=== PATIENT | male | born 1955 | race Caucasian/White ===

== ENCOUNTER 2019-04-11 22:01 | Emergency (ER) | payer BC ==
[~2019-04-11] VITALS: Ht 315 cm; Wt 77.6 kg
[~2019-04-11 22:01] MED LIST: ASPIR 8181 MG PO; ATORVASTATIN CA20 MG PO; BENAZEPRIL HCL10 MG PO; COSAMIN ASU CA1 EACH PO; METOPROLOL TART25 MG PO; PANTOPRAZOLE SO40 MG PO
--- OUTSIDE RECORDS SUMMARY | 2019-04-11 22:04 | XMS REPORT | Continuity of Care Document ---
Author Author [employer] Organization [employer] Address Unknown Phone Unavailable Care Team Providers Care Hand Cloth Folder Name Role Phone [facility] [employer] Unavailable Unavailable Problems Problem Status Onset Date Classification Date Reported Comments Source CERVICAL Active 09/04/2017 [facility] Discharge Diagnosis: Palpitations 12/23/2015 12/26/2015 [facility] HIGH PULSE Active 12/23/2015 [facility] 719.46 - JOINT PAIN-L/LE Active 05/19/2014 [facility] [place] RT KNEE SPRAIN Active 02/13/2014 [facility] RT KNEE Active 10/08/2000 [facility] Pulmonary embolism Resolved Problem 10/14/2017 [facility] Datatype(DG1.4)- Active [facility] RT KNEE PAIN Active [facility] JOINT PAIN-L/LEG Active [facility] Medications Medication Details Route Status Patient Instructions Ordering Provider Order Date Source Iohexol 87 mL, Route: IVP, Drug Form: SOLN, Dosing Weight 74.091, kg, ONCALL, STAT, Start date: 12/23/15 14:07:00, Duration: 1 doses or times, Dose=2.2ml/kg, Max uecs=[id number] -- "To be infused by Radiology Staff ONLY" Inactive 12/23/2015 [facility] Sodium Chloride 0.154 MEQ/ML Injectable Solution 1,000 mL, 1,000 ml/hr, Infuse Over: 1 hr, Route: IV, ONCE, Priority: STAT, Dosing Weight 74.091 kg, Start date: 12/23/15 12:33:00, Duration: 1 doses or times, Stop date: 12/23/15 12:33:00 Inactive 12/23/2015 [facility] Zofran 4 mg, Route: IVP, Drug form: INJ, ONCE, Dosing Weight 74.091, kg, Priority: STAT, Start date: 12/23/15 12:33:00, Stop date: 12/23/15 12:33:00 Inactive 12/23/2015 [facility] Morphine 2 mg, Route: IVP, Drug form: INJ, ONCE, Dosing Weight 74.091, kg, Priority: STAT, Start date: 12/23/15 12:33:00, Stop date: 12/23/15 12:33:00 Inactive 12/23/2015 [facility] enoxaparin 80 mg/0.8 mL subcutaneous solution 70 mg=0.7 mL, SUB-Q, [id number], # 60 syr, 0 Refill(s) Active 04/07/2014 [facility] Vitamin D3 2000 intl units oral capsule 2,000 IntlUnit=1 cap, PO, Daily, 0 Refill(s) Active 04/06/2014 [facility] Vitamin B12 SL, Daily, 0 Refill(s) Active 04/06/2014 [facility] Coumadin 5 mg, 1 tab, Route: PO, Drug form: TAB, Q5PM, kg, Start date: 04/06/14 17:00:00, Duration: 1 doses or times, Stop date: 04/06/14 17:00:00Notes: Nurse to ensure documentation of patient education per anticoagulation policy. Avoid large intake of vitamin-K containing foods diet. (Same As: Coumadin) Inactive 04/06/2014 [facility] Lovenox 70 mg, 0.7 mL, Route: SUB-Q, Drug form: INJ, [id number], kg, Start date: 04/06/14 14:00:00, Duration: 30 day, Stop date: 05/06/14 6:00:00Notes: Nurse to ensure documentation of patient education per an ticoagulation policy. (Same as: Lovenox) No Longer Active 04/06/2014 [facility] benazepril 20 mg, 1 tab, Route: PO, Drug form: TAB, Daily, Dosing Weight 74.29, kg, Start date: 04/06/14 10:00:00, Duration: 30 day, Stop date: 05/06/14 9:00:00Notes: Non-Formulary Drug (Same As: Lotensin) No Longer Active 04/06/2014 [facility] Docusate 100 mg, 1 cap, Route: PO, Drug form: CAP, BID, kg, Start date: 04/06/14 9:00:00, Duration: 30 day, Stop date: 05/05/14 17:00:00Notes: (Same as: Colace) (Do Not Crush) No Longer Active 04/06/2014 [facility] Protonix 40 mg, 1 tab, Route: PO, Drug form: ECTAB, Before Breakfast, kg, Start date: 04/06/14 7:30:00, Duration: 30 day, Stop date: 05/05/14 7:30:00Notes: Tablet should not be chewed or crushed. (Same as: Pr otonix) No Longer Active 04/06/2014 [facility] Morphine 2 mg, 1 mL, Route: IVP, Drug form: INJ, Q4H, kg, PRN as needed for pain, Start date: 04/06/14 6:30:00, Duration: 30 day, Stop date: 05/06/14 6:29:00Notes: (Same as:MORPhine Sulfate) No Longer Active 04/06/2014 [facility] benazepril 20 mg, PO, Daily, 0 Refill(s) Active 04/06/2014 [facility] pantoprazole 40 MG Granules [Protonix] =1 Pack, PO, Daily, # 30 ea, 0 Refill(s) Active 04/06/2014 [facility] Tramadol 50 mg, 1 tab, Route: PO, Drug form: TAB, Q4H, kg, PRN Pain, Start date: 04/06/14 5:49:00, Duration: 30 day, Stop date: 05/06/14 5:48:00Notes: Not to exceed 400mg/day. (Same As: Ultram) No Longer Active 04/06/2014 [facility] NS 1,000 mL 1,000 mL, Rate: 125 ml/hr, Infuse over: 8 hr, Route: IV, Total Volume: 1,000, Start date: 04/06/14 5:49:00, Duration: 30 day, Stop date: 05/06/14 5:48:00 Inactive 04/06/2014 [facility] Tylenol 650 mg, 2 tab, Route: PO, Drug form: TAB, Q6H, kg, PRN Fever, Start date: 04/06/14 5:49:00, Duration: 30 day, Stop date: 05/06/14 5:48:00Notes: Do not exceed 4 gm/day. (Same as: Tylenol) No Longer Active 04/06/2014 [facility] Zofran 4 mg, 2 mL, Route: IV, Drug form: INJ, Q8H, kg, PRN Nausea, Start date: 04/06/14 5:49:00, Duration: 30 day, Stop date: 05/06/14 5:48:00Notes: (Same as: Zofran) No Longer Active 04/06/2014 [facility] Acetaminophen 650 mg, Route: PO, Drug form: TAB, Q4H, kg, PRN Pain 1-3/Temp > 100.4 F, Start date: 04/06/14 5:36:00, Duration: 30 day, Stop date: 05/06/14 5:35:00 Inactive 04/06/2014 [facility] Acetaminophen 325 MG / Hydrocodone Bitartrate 5 MG Oral Tablet 1 tab, Route: PO, Drug Form: TAB, kg, Q4H, PRN Pain Score 1-3, Start date: 04/06/14 5:36:00, Duration: 30 day, Stop date: 05/06/14 5:35:00Notes: (Same as: [place] 325/5) Do not exceed 4gm/day of acetaminophen. No Longer Active 04/06/2014 [facility] Ondansetron 4 mg, 2 mL, Route: IVP, Drug form: INJ, ONCE, kg, PRN Nausea & Vomiting, Start date: 04/06/14 5:36:00Notes: (Same as: Zofran) No Longer Active 04/06/2014 [facility] Allergies, Adverse Reactions, Alerts Substance Category Reaction Severity Reaction type Status Date Reported Comments Source penicillins Assertion Drug allergy Active [facility] Immunizations No Data Provided for This Section Results Order Name Results Value Reference Range Date Interpretation Comments Source CARDIAC ENZYMES Troponin-I <0.02 0.00 - 0.40 12/23/2015 [facility] CHEM PANEL A/G Ratio 0.9 0.7 - 1.6 12/23/2015 [facility] CHEM PANEL Globulin 4.4 2.0 - 4.0 12/23/2015 [facility] CHEM PANEL AGAP 12.0 10.0 - 20.0 12/23/2015 [facility] CHEM PANEL B/C Ratio 11 6 - 25 12/23/2015 [facility] CHEM PANEL Albumin Lvl 3.9 3.5 - 5.0 12/23/2015 [facility] CHEM PANEL Total Protein 8.3 6.4 - 8.4 12/23/2015 [facility] CHEM PANEL AST 22 0 - 37 12/23/2015 [facility] CHEM PANEL ALT 45 0 - 65 12/23/2015 [facility] CHEM PANEL Bili Total 2.4 0.2 - 1.3 12/23/2015 [facility] CHEM PANEL Alk Phos 91 39 - 136 12/23/2015 [facility] CHEM PANEL eGFR 63 12/23/2015 Result Comment: The eGFR is calculated using the CKD-EPI formula. In most young, healthy individuals the eGFR will be >90 mL/min/1.73m2. The eGFR declines with age. An eGFR of 60-89 may be normal in some populations, particularly the elderly, for whom the CKD-EPI formula has not been extensively validated. Use of the eGFR is not recommended in the following populations:

Individuals with unstable creatinine concentrations, including patients and those with serious co-morbid conditions.

Patients with extremes in muscle mass or diet.

The data above are obtained from the National Kidney Disease Education Program (NKDEP) which additionally recommends that when the eGFR is used in patients with extremes of body mass index for purposes of drug dosing, the eGFR should be multiplied by the estimated BMI. [facility] CHEM PANEL BUN 14 7 - 22 12/23/2015 [facility] CHEM PANEL Glucose Lvl 103 70 - 99 12/23/2015 [facility] CHEM PANEL Calcium Lvl 9.2 8.5 - 10.5 12/23/2015 [facility] CHEM PANEL CO2 28 24 - 32 12/23/2015 [facility] CHEM PANEL Potassium Lvl 4.0 3.5 - 5.1 12/23/2015 [facility] CHEM PANEL Creatinine Lvl 1.25 0.50 - 1.40 12/23/2015 [facility] CHEM PANEL Chloride Lvl 103 95 - 109 12/23/2015 [facility] CHEM PANEL Sodium Lvl 139 135 - 145 12/23/2015 [facility] CHEM PANEL Lactic Acid Lvl 1.6 0.5 - 2.2 12/23/2015 [facility] HEMATOLOGY MPV 8.9 7.4 - 10.4 12/23/2015 [facility] HEMATOLOGY Platelet 209 133 - 450 12/23/2015 [facility] HEMATOLOGY RDW 13.7 11.5 - 14.5 12/23/2015 [facility] HEMATOLOGY RBC 5.18 4.70 - 6.10 12/23/2015 [facility] HEMATOLOGY Hgb 16.2 14.0 - 18.0 12/23/2015 [facility] HEMATOLOGY MCHC 32.8 32.0 - 36.0 12/23/2015 [facility] HEMATOLOGY Hct 49.4 42.0 - 54.0 12/23/2015 [facility] HEMATOLOGY MCH 31.3 27.0 - 31.0 12/23/2015 [facility] HEMATOLOGY MCV 95.4 80.0 - 94.0 12/23/2015 [facility] HEMATOLOGY WBC 9.3 3.7 - 10.4 12/23/2015 [facility] HEMATOLOGY Monocytes # 1.2 0.0 - 0.8 12/23/2015 [facility] HEMATOLOGY Lymphocytes # 1.6 1.0 - 5.5 12/23/2015 [facility] HEMATOLOGY Eosinophils 0.5 0.0 - 4.0 12/23/2015 [facility] HEMATOLOGY Monocytes 12.5 2.0 - 12.0 12/23/2015 [facility] HEMATOLOGY Segs-Bands # 6.4 1.5 - 8.1 12/23/2015 [facility] HEMATOLOGY Basophils 0.5 0.0 - 1.0 12/23/2015 [facility] HEMATOLOGY Segs 68.7 45.0 - 75.0 12/23/2015 [facility] HEMATOLOGY Lymphocytes 17.8 20.0 - 40.0 12/23/2015 [facility] HEMATOLOGY PT 14.0 12.0 - 14.7 04/07/2014 [facility] HEMATOLOGY INR 1.09 0.85 - 1.17 04/07/2014 <sup>3</sup>Interpretive Data: RECOMMENDED RANGES FOR PROTIME INR:
2.0-3.0 for most medical and surgical thromboembolic states.
2.5-3.5 for artificial heart valves and recurrent embolism.

INR SHOULD BE USED ONLY FOR PATIENTS ON STABLE ANTICOAGULANT THERAPY. [facility] HEMATOLOGY PTT 36.0 22.9 - 35.8 04/06/2014 <sup>5</sup>Interpretive Data: Heparin Therapeutic Range: 57 - 92 Seconds [facility] HEMATOLOGY PT 13.3 12.0 - 14.7 04/06/2014 [facility] HEMATOLOGY INR 1.02 0.85 - 1.17 04/06/2014 <sup>4</sup>Interpretive Data: RECOMMENDED RANGES FOR PROTIME INR:
2.0-3.0 for most medical and surgical thromboembolic states.
2.5-3.5 for artificial heart valves and recurrent embolism.

INR SHOULD BE USED ONLY FOR PATIENTS ON STABLE ANTICOAGULANT THERAPY. [facility] CHEM PANEL eGFR 67 04/06/2014 <sup>1</sup>Result Comment: The eGFR is calculated using the CKD-EPI formula. In most young, healthy individuals the eGFR will be >90 mL/min/1.73m2. The eGFR declines with age. An eGFR of 60-89 may be normal in some populations, particularly the elderly, for whom the CKD-EPI formula has not been extensively validated. Use of the eGFR is not recommended in the following populations:& lt;br/>
Individuals with unstable creatinine concentrations, including patients and those with serious co-morbid conditions.

Patients with extremes in muscle mass or diet.

The data above are obtained from the National Kidney Disease Education Program (NKDEP) which additionally recommends that when the eGFR is used in patients with extremes of body mass index for purposes of drug dosing, the eGFR should be multiplied by the estimated BMI. [facility] CHEM PANEL Glucose Lvl 100 70 - 99 04/06/2014 <sup>2</sup>Interpretive Data: Adult reference range values reflect the clinical guidelines
of the [place] [employer]. [facility] CHEM PANEL Creatinine Lvl 1.2 0.5 - 1.4 04/06/2014 [facility] CHEM PANEL Sodium Lvl 142 135 - 145 04/06/2014 [facility] CHEM PANEL CO2 23 24 - 32 04/06/2014 [facility] CHEM PANEL Chloride Lvl 109 95 - 109 04/06/2014 [facility] CHEM PANEL Potassium Lvl 4.4 3.5 - 5.1 04/06/2014 [facility] CHEM PANEL Total Protein 6.5 6.4 - 8.4 04/06/2014 [facility] CHEM PANEL Alk Phos 102 39 - 136 04/06/2014 [facility] CHEM PANEL Albumin Lvl 3.5 3.5 - 5.0 04/06/2014 [facility] CHEM PANEL AST 27 0 - 37 04/06/2014 [facility] CHEM PANEL ALT 38 0 - 65 04/06/2014 [facility] CHEM PANEL Bili Total 1.6 0.2 - 1.3 04/06/2014 [facility] CHEM PANEL BUN 16 7 - 22 04/06/2014 [facility] CHEM PANEL Calcium Lvl 9.0 8.5 - 10.5 04/06/2014 [facility] CHEM PANEL A/G Ratio 1.2 0.7 - 1.6 04/06/2014 [facility] CHEM PANEL AGAP 14.4 10.0 - 20.0 04/06/2014 [facility] CHEM PANEL Globulin 3.0 2.0 - 4.0 04/06/2014 [facility] CHEM PANEL B/C Ratio 13 6 - 25 04/06/2014 [facility] CHEM PANEL Magnesium Lvl 1.9 1.8 - 2.4 04/06/2014 [facility] CHEM PANEL Phosphorus 2.4 2.5 - 4.5 04/06/2014 [facility] HEMATOLOGY Eosinophils # 0.1 0.0 - 0.5 04/06/2014 [facility] HEMATOLOGY Monocytes # 0.9 0.0 - 0.8 04/06/2014 [facility] HEMATOLOGY Lymphocytes # 1.5 1.0 - 5.5 04/06/2014 [facility] HEMATOLOGY Segs-Bands # 6.0 1.5 - 8.1 04/06/2014 [facility] HEMATOLOGY Segs 70.5 45.0 - 75.0 04/06/2014 [facility] HEMATOLOGY Basophils 0.3 0.0 - 1.0 04/06/2014 [facility] HEMATOLOGY Eosinophils 1.3 0.0 - 4.0 04/06/2014 [facility] HEMATOLOGY Monocytes 10.6 2.0 - 12.0 04/06/2014 [facility] HEMATOLOGY Lymphocytes 17.3 20.0 - 40.0 04/06/2014 [facility] HEMATOLOGY RDW 13.4 11.5 - 14.5 04/06/2014 [facility] HEMATOLOGY MCHC 33.5 32.0 - 36.0 04/06/2014 [facility] HEMATOLOGY RBC 4.68 4.70 - 6.10 04/06/2014 [facility] HEMATOLOGY MPV 8.7 7.4 - 10.4 04/06/2014 [facility] HEMATOLOGY Platelet 173 133 - 450 04/06/2014 [facility] HEMATOLOGY MCH 31.3 27.0 - 31.0 04/06/2014 [facility] HEMATOLOGY MCV 93.3 80.0 - 94.0 04/06/2014 [facility] HEMATOLOGY Hct 43.7 42.0 - 54.0 04/06/2014 [facility] HEMATOLOGY Hgb 14.7 14.0 - 18.0 04/06/2014 [facility] HEMATOLOGY WBC 8.5 3.7 - 10.4 04/06/2014 [facility] Pathology Reports No Data Provided for This Section Diagnostic Reports Report Value Date Source Spine cervical wo contrast MRI Exam: MRI C-spine without contrast. INDICATION: Neck pain, left upper extremity pain and numbness. COMPARISON: None TECHNIQUE: Sagittal T1/T2/STIR and axial T2/GRE weighted sequences of the cervical spine are obtained without contrast. FINDINGS: There is straightening of cervical lordosis. Vertebral bodies are of normal height. Discs are desiccated with preserved disc height. Marrow signal is within normal limits. Visualized posterior fossa is unremarkable. No cord signal abnormality. Paravertebral soft tissues are normal. The cervical levels not described below are deemed normal. INDIVIDUAL LEVELS: C4-C5: Disc osteophyte complex flattens the cord. Bilateral uncovertebral spurs. Mild foraminal stenosis on the right with minimal bony encroachment on the exiting C5 nerve root. C5-C6: Small disc osteophyte complex on the left abutting the ventral ramus of the exiting C6 nerve root, C7-T1: Mild disc bulge. No neural compromise. IMPRESSION: 1. Small disc osteophyte complex at C5-C6 on the left abutting but not displacing the exiting left C6 nerve root.. 2. No spinal canal stenosis. 3. Foraminal stenosis at C4-C5 on the right with nerve root encroachment. 05/16/2017 [facility] Chest Pulmonary Embolism CTA EXAM: CTA CHEST WITH CONTRAST DATE: 12/23/2015 11:35 AM CDT INDICATION: Chest pain COMPARISON: CXR 12/23/2015 TECHNIQUE: Volumetric CT acquisition of the chest, during pulmonary arterial phase, after intravenous contrast. Axial, sagittal, coronal, and oblique MIP reconstructions are created at the acquisition workstation. IV Contrast: 87 mL DLP: 554 mGy-cm FINDINGS: Lines and tubes: None Lower neck: A 5 mm left thyroid nodule is identified. This does not meet size criteria for fine-needle aspiration. Heart and Mediastinum: There is no pulmonary embolus to segmental level. Heart size is normal. There is a trace pericardial effusion. There is prominence of the mediastinal fat pad. Thoracic aorta and pulmonary trunk have a normal caliber. Pleura: Trace amount of right pleural fluid. Lymph Nodes: There is no hilar, mediastinal, axillary or internal mammary lymphadenopathy. Lungs: Minimal linear atelectasis at the lung bases. 2 mm nodule in the right middle lobe on axial image 104 and 3 mm nodule in the right middle lobe on axial image 106. 1.5 mm nodule in the left upper lobe on axial image 81. 2 mm left perifissural nodule/lymph node in the left lower lobe on axial image 82 Trachea: Unremarkable Upper abdomen: Unremarkable Bones and soft tissues: Unremarkable IMPRESSION: 1. No pulmonary embolism to the segmental level. 2. Few less than 3 mm pulmonary nodules. If there is a smoking history, then CT chest in 12 months would be recommended. If there is no smoking history, then no further follow-up is recommended. 3. Trace amount of right pleural fluid. 12/23/2015 [facility] Chest 2 views DX EXAM: XR CHEST AP 1 VIEW DATE: 12/23/2015 1139 hours CDT INDICATION: Chest pain COMPARISON: None TECHNIQUE: Chest AP -- 1 View FINDINGS: Cardiac silhouette size is normal. Central pulmonary vascularity is within normal limits. Mediastinal and hilar contours are stable. Prominent epicardial fat pad along the right heart border is stable. No airspace consolidation, pleural effusion, or pneumothorax is present. Skeletal structures demonstrate no acute findings. IMPRESSION: No acute cardiopulmonary abnormality is observed. 12/23/2015 [facility] Consultation Notes No Data Provided for This Section Discharge Summaries No Data Provided for This Section History and Physicals No Data Provided for This Section Vital Signs Vital Sign Value Date Comments Source BMI Calculated 27.52 08/22/2017 [facility] Weight 72.727 08/22/2017 [facility] Height 162.56 cm 08/22/2017 [facility] Heart Rate 59 08/22/2017 [facility] Systolic (mm Hg) 129 08/22/2017 [facility] Diastolic (mm Hg) 83 08/22/2017 [facility] Temperature Oral (F) 98.2 F 12/23/2015 [facility] Respitory Rate 16 12/23/2015 [facility] Heart Rate 83 12/23/2015 [facility] Systolic (mm Hg) 133 12/23/2015 [facility] Diastolic (mm Hg) 74 12/23/2015 [facility] Temperature Oral (F) 98.1 F 12/23/2015 [facility] Respitory Rate 16 12/23/2015 [facility] Systolic (mm Hg) 128 12/23/2015 [facility] Diastolic (mm Hg) 72 12/23/2015 [facility] Heart Rate 89 12/23/2015 [facility] Systolic (mm Hg) 140 12/23/2015 [facility] Diastolic (mm Hg) 90 12/23/2015 [facility] Respitory Rate 16 12/23/2015 [facility] Heart Rate 96 12/23/2015 [facility] Temperature Oral (F) 98.3 F 12/23/2015 [facility] Temperature Oral (F) 98.7 F 04/07/2014 [facility] Heart Rate 85 04/07/2014 [facility] Respitory Rate 16 04/07/2014 [facility] Diastolic (mm Hg) 77 04/07/2014 [facility] Systolic (mm Hg) 125 04/07/2014 [facility] Respitory Rate 16 04/07/2014 [facility] Diastolic (mm Hg) 84 04/07/2014 [facility] Temperature Oral (F) 98.4 F 04/07/2014 [facility] Systolic (mm Hg) 123 04/07/2014 [facility] Heart Rate 86 04/07/2014 [facility] Respitory Rate 25 04/07/2014 [facility] Temperature Oral (F) 98.4 F 04/07/2014 [facility] Systolic (mm Hg) 119 04/06/2014 [facility] Diastolic (mm Hg) 72 04/06/2014 [facility] Weight 74.091 04/06/2014 [facility] BMI Calculated 28.04 04/06/2014 [facility] Height 162.56 cm 04/06/2014 [facility] BMI Calculated 28.11 04/06/2014 [facility] Weight 74.29 04/06/2014 [facility] Height 162.56 cm 04/06/2014 [facility] Encounters Location Location Details Encounter Type Encounter Number Reason For Visit Attending Provider ADM Date DC Date Status Source [facility] Inpatient [id number] [place] [facility] 04/06/2014 04/07/2014 [facility] Patients [id number] C Chassay 05/05/2014 06/04/2014 [facility] OP Therapy Patients [id number] C Chassay 06/11/2014 07/11/2014 [facility] OP Therapy Patients [id number] C Chassay 07/16/2014 08/15/2014 [facility] [id number] Mohinder Patrick 12/23/2015 12/23/2015 [facility] [place] [facility] [id number] Altaf Damon 05/16/2017 05/17/2017 [facility] [place] [facility] [id number] MARQUES L DAY 06/06/2017 Active [facility] Outpatient [id number] MARQUES L DAY 06/20/2017 Active [facility] Outpatient [id number] JULIA HERNANDEZ 06/25/2017 Active [facility] Outpatient [id number] JULIA HERNANDEZ 07/23/2017 Active [facility] Outpatient [id number] JULIA MARY 08/08/2017 Active [facility] Outpatient [id number] JULIA HERNANDEZ 08/22/2017 Active [facility] Outpatient [id number] Mike Bhakta 08/22/2017 08/23/2017 [facility] OP Therapy Patients [id number] Julia Hernandez 09/12/2017 10/12/2017 [facility] Procedures Procedure Code Date Perfomer Comments Source Colonoscopy [id number] [facility] Pulmonary fat embolism [id number] [facility] Colonoscopy [id number] [facility] Pulmonary fat embolism [id number] [facility] Assessment and Plan No Data Provided for This Section Plan of Care No Data Provided for This Section Social History Social History Date Source Social History TypeResponse Smoking Status Never smoker; Exposure to Tobacco Smoke None; Cigarette Smoking Last 365 Days No; Reg Smoking Cessation Counseling No 08/22/2017 [facility] Social History TypeResponse Smoking Status Never smoker; Exposure to Tobacco Smoke None; Cigarette Smoking Last 365 Days No; Reg Smoking Cessation Counseling No 08/22/2017 [facility] Social History TypeResponse Smoking Status Never smoker; Exposure to Tobacco Smoke None; Cigarette Smoking Last 365 Days No; Reg Smoking Cessation Counseling No 12/23/2015 [facility] Social History TypeResponse Smoking Status Never smoker; Exposure to Tobacco Smoke None; Cigarette Smoking Last 365 Days No; Reg Smoking Cessation Counseling No 12/23/2015 [facility] [place] Family History No Data Provided for This Section Advance Directives No Data Provided for This Section Functional Status No Data Provided for This Section
--- OUTSIDE RECORDS SUMMARY | 2019-04-11 22:05 | XMS REPORT | Summary of Care ---
Author Organization Unknown Address Unknown Phone Unavailable Encounter HQ Nailar_suresh(BROCK) [id number] Date(s): 04/06/14 - 04/07/[address] Discharge Disposition: Home Physician Attending: Hermes Palmer MD Physician Admitting: Hermes Palmer MD Physician_Referring: Garland Montemayor MD Reason for Visit PE Vital Signs 1 2 3 Most recent to oldest [Reference Range]: 162.56 cm (04/06/14 9:54 AM) 162.56 cm (04/06/14 8:37 AM) Height 98.7 DegF (04/07/14 12:00 PM) 98.4 DegF (04/07/14 8:00 AM) 98.4 DegF (04/07/14 6:19 AM) Temperature Oral [96.4-99.1 DegF] 125 mmHg (04/07/14 12:00 PM) 123 mmHg (04/07/14 8:00 AM) 119 mmHg (04/06/14 6:00 PM) Systolic Blood Pressure [90-140 mmHg] 77 mmHg (04/07/14 12:00 PM) 84 mmHg (04/07/14 8:00 AM) 72 mmHg (04/06/14 6:00 PM) Diastolic Blood Pressure [60-90 mmHg] 16 BRMIN (04/07/14 12:00 PM) 16 BRMIN (04/07/14 8:00 AM) 25 BRMIN *HI* (04/07/14 6:19 AM) Respiratory Rate [14-20 BRMIN] 85 bpm (04/07/14 12:00 PM) 86 bpm (04/07/14 8:00 AM) Peripheral Pulse Rate [60-100 bpm] 74.091 kg (04/06/14 9:54 AM) 74.29 kg (04/06/14 8:37 AM) Weight 28.04 m2 (04/06/14 9:54 AM) 28.11 m2 (04/06/14 8:37 AM) Body Mass Index Problem List No data available for this section Allergies, Adverse Reactions, Alerts Substance Reaction Severity Status penicillins Active Medications acetaminophen 650 mg, Route: PO, Drug form: TAB, Q4H, kg, PRN Pain 1-3/Temp > 100.4 F, Start date: 04/06/14 5:36:00, Duration: 30 day, Stop date: 05/06/14 5:35:00 Start Date: 04/06/14 Stop Date: 04/06/14 Status: Discontinued acetaminophen-hydrocodone 325 mg-5 mg oral tablet 1 tab, Route: PO, Drug Form: TAB, kg, Q4H, PRN Pain Score 1-3, Start date: 04/06 5:36:00, Duration: 30 day, Stop date: 05/06/14 5:35:00 Notes: (Same as: Bovill 325/5) Do not exceed 4gm/day of acetaminophen. Start Date: 04/06/14 Stop Date: 04/07/14 Status: Discontinued benazepril 20 mg, PO, Daily, 0 Refill(s) Start Date: 04/06/14 Status: Ordered benazepril 20 mg, 1 tab, Route: PO, Drug form: TAB, Daily, Dosing Weight 74.29, kg, Start d ate: 04/06/14 10:00:00, Duration: 30 day, Stop date: 05/06/14 9:00:00 Notes: Non-Formulary Drug (Same As: Lotensin) Start Date: 04/06/14 Stop Date: 04/07/14 Status: Discontinued Coumadin 5 mg, 1 tab, Route: PO, Drug form: TAB, Q5PM, kg, Start date: 04/06/14 17:00:00, Duration: 1 doses or times, Stop date: 04/06/14 17:00:00 Notes: Nurse to ensure documentation of patient education per anticoagulation po licy.Avoid large intake of vitamin-K containing foods diet.(Same As: Coumadin) Start Date: 04/06/14 Stop Date: 04/06/14 Status: Completed docusate 100 mg, 1 cap, Route: PO, Drug form: CAP, BID, kg, Start date: 04/06/14 9:00:00, Duration: 30 day, Stop date: 05/05/14 17:00:00 Notes: (Same as: Colace) (Do Not Crush) Start Date: 04/06/14 Stop Date: 04/07/14 Status: Discontinued enoxaparin 80 mg/0.8 mL subcutaneous solution 70 mg=0.7 mL, SUB-Q, [id number], # 60 syr, 0 Refill(s) Start Date: 04/07/14 Status: Ordered Lovenox 70 mg, 0.7 mL, Route: SUB-Q, Drug form: INJ, [id number], kg, Start date: 04/06/14 14:00:00, Duration: 30 day, Stop date: 05/06/14 6:00:00 Notes: Nurse to ensure documentation of patient education per anticoagulation po licy. (Same as: Lovenox) Start Date: 04/06/14 Stop Date: 04/07/14 Status: Discontinued morphine Sulfate 2 mg, 1 mL, Route: IVP, Drug form: INJ, Q4H, kg, PRN as needed for pain, Start d ate: 04/06/14 6:30:00, Duration: 30 day, Stop date: 05/06/14 6:29:00 Notes: (Same as:MORPhine Sulfate) Start Date: 04/06/14 Stop Date: 04/07/14 Status: Discontinued NS 1,000 mL 1,000 mL, Rate: 125 ml/hr, Infuse over: 8 hr, Route: IV, Total Volume: 1,000, St art date: 04/06/14 5:49:00, Duration: 30 day, Stop date: 05/06/14 5:48:00 Start Date: 04/06/14 Stop Date: 04/06/14 Status: Discontinued ondansetron 4 mg, 2 mL, Route: IVP, Drug form: INJ, ONCE, kg, PRN Nausea & Vomiting, Start date: 04/06/14 5:36:00 Notes: (Same as: Zofran) Start Date: 04/06/14 Stop Date: 04/07/14 Status: Discontinued Protonix 40 mg, 1 tab, Route: PO, Drug form: ECTAB, Before Breakfast, kg, Start date: 7:30:00, Duration: 30 day, Stop date: 05/05/14 7:30:00 Notes: Tablet should not be chewed or crushed.(Same as: Protonix) Start Date: 04/06/14 Stop Date: 04/07/14 Status: Discontinued Protonix 40 mg oral granule =1 Pack, PO, Daily, # 30 ea, 0 Refill(s) Start Date: 04/06/14 Status: Ordered tramadol 50 mg, 1 tab, Route: PO, Drug form: TAB, Q4H, kg, PRN Pain, Start date: 04/06/14 5:49:00, Duration: 30 day, Stop date: 05/06/14 5:48:00 Notes: Not to exceed 400mg/day. (Same As: Ultram) Start Date: 04/06/14 Stop Date: 04/07/14 Status: Discontinued Tylenol 650 mg, 2 tab, Route: PO, Drug form: TAB, Q6H, kg, PRN Fever, Start date: 5:49:00, Duration: 30 day, Stop date: 05/06/14 5:48:00 Notes: Do not exceed 4 gm/day. (Same as: Tylenol) Start Date: 04/06/14 Stop Date: 04/07/14 Status: Discontinued Vitamin B12 SL, Daily, 0 Refill(s) Start Date: 04/06/14 Status: Ordered Vitamin D3 2000 intl units oral capsule 2,000 IntlUnit=1 cap, PO, Daily, 0 Refill(s) Start Date: 04/06/14 Status: Ordered Zofran 4 mg, 2 mL, Route: IV, Drug form: INJ, Q8H, kg, PRN Nausea, Start date: 04/06/14 5:49:00, Duration: 30 day, Stop date: 05/06/14 5:48:00 Notes: (Same as: Zofran) Start Date: 04/06/14 Stop Date: 04/07/14 Status: Discontinued Results ELECTROLYTES Most recent to 1 2 oldest [Reference Range]: Sodium Lvl [135-145 142 mEq/L mEq/L] (04/06/14 6:16 AM) Potassium Lvl 4.4 mEq/L [3.5-5.1 mEq/L] (04/06/14 6:16 AM) Chloride Lvl [95-109 109 mEq/L mEq/L] (04/06/14 6:16 AM) CO2 [24-32 mEq/L] 23 mEq/L *LOW* (04/06/14 6:16 AM) AGAP [10.0-20.0 14.4 mEq/L mEq/L] (04/06/14 6:16 AM) CHEM PANEL Most recent to 1 2 oldest [Reference Range]: Creatinine Lvl 1.2 mg/dL [0.5-1.4 mg/dL] (04/06/14 6:16 AM) eGFR 67 mL/min/1.73m2 1 *NA* (04/06/14 6:16 AM) BUN [7-22 mg/dL] 16 mg/dL (04/06/14 6:16 AM) B/C Ratio [6-25] 13 (04/06/14 6:16 AM) Glucose Lvl [70-99 100 mg/dL 2 mg/dL] *HI* (04/06/14 6:16 AM) Total Protein 6.5 g/dL [6.4-8.4 g/dL] (04/06/14 6:16 AM) Albumin Lvl [3.5-5.0 3.5 g/dL g/dL] (04/06/14 6:16 AM) Globulin [2.0-4.0 3.0 g/dL g/dL] (04/06/14 6:16 AM) A/G Ratio [0.7-1.6] 1.2 (04/06/14 6:16 AM) Calcium Lvl 9.0 mg/dL [8.5-10.5 mg/dL] (04/06/14 6:16 AM) Phosphorus [2.5-4.5 2.4 mg/dL mg/dL] *LOW* (04/06/14 6:16 AM) Magnesium Lvl 1.9 mg/dL [1.8-2.4 mg/dL] (04/06/14 6:16 AM) ALT [0-65 unit/L] 38 unit/L (04/06/14 6:16 AM) AST [0-37 unit/L] 27 unit/L (04/06/14 6:16 AM) Alk Phos [39-136 102 unit/L unit/L] (04/06/14 6:16 AM) Bili Total [0.2-1.3 1.6 mg/dL mg/dL] *HI* (04/06/14 6:16 AM) 1Result Comment: The eGFR is calculated using the [...] from the National Kidney Disease Education Program ( NKDEP) which additionally recommends that when the eGFR is used in patients with extremes of body mass index for purposes of drug dosing, the eGFR should be mul tiplied by the estimated BMI. 2Interpretive Data: Adult reference range values reflect the clinical guidelines of the [place] [employer]. HEMATOLOGY Most recent to 1 2 oldest [Reference Range]: WBC [3.7-10.4 K/CMM] 8.5 K/CMM (04/06/14 6:16 AM) RBC [4.70-6.10 4.68 M/CMM M/CMM] *LOW* (04/06/14 6:16 AM) Hgb [14.0-18.0 g/dL] 14.7 g/dL (04/06/14 6:16 AM) Hct [42.0-54.0 %] 43.7 % (04/06/14 6:16 AM) MCV [80.0-94.0 fL] 93.3 fL (04/06/14 6:16 AM) MCH [27.0-31.0 pg] 31.3 pg *HI* (04/06/14 6:16 AM) MCHC [32.0-36.0 33.5 g/dL g/dL] (04/06/14 6:16 AM) RDW [11.5-14.5 %] 13.4 % (04/06/14 6:16 AM) Platelet [133-450 173 K/CMM K/CMM] (04/06/14 6:16 AM) MPV [7.4-10.4 fL] 8.7 fL (04/06/14 6:16 AM) Segs [45.0-75.0 %] 70.5 % (04/06/14 6:16 AM) Lymphocytes 17.3 % [20.0-40.0 %] *LOW* (04/06/14 6:16 AM) Monocytes [2.0-12.0 10.6 % %] (04/06/14 6:16 AM) Eosinophils [0.0-4.0 1.3 % %] (04/06/14 6:16 AM) Basophils [0.0-1.0 0.3 % %] (04/06/14 6:16 AM) Segs-Bands # 6.0 K/CMM [1.5-8.1 K/CMM] (04/06/14 6:16 AM) Lymphocytes # 1.5 K/CMM [1.0-5.5 K/CMM] (04/06/14 6:16 AM) Monocytes # [0.0-0.8 0.9 K/CMM K/CMM] *HI* (04/06/14 6:16 AM) Eosinophils # 0.1 K/CMM [0.0-0.5 K/CMM] (04/06/14 6:16 AM) PT [12.0-14.7 14.0 seconds 13.3 seconds seconds] (04/07/14 5:19 AM) (04/06/14 6:16 AM) INR [0.85-1.17] 1.09 3 1.02 4 (04/07/14 5:19 AM) (04/06/14 6:16 AM) PTT [22.9-35.8 36.0 seconds 5 seconds] *HI* (04/06/14 6:16 AM) 3Interpretive Data: RECOMMENDED RANGES FOR PROTIME INR: 2.0-3.0 for most medical and surgical thromboembolic states. 2.5-3.5 for artificial heart valves and recurrent embolism. INR SHOULD BE USED ONLY FOR PATIENTS ON STABLE ANTICOAGULANT THERAPY. 4Interpretive Data: RECOMMENDED RANGES FOR PROTIME INR: 2.0-3.0 for most medical and surgical thromboembolic states. 2.5-3.5 for artificial heart valves and recurrent embolism. INR SHOULD BE USED ONLY FOR PATIENTS ON STABLE ANTICOAGULANT THERAPY. 5Interpretive Data: Heparin Therapeutic Range: 57 - 92 Seconds Medications Administered During Your Visit No data available for this section Immunizations No data available for this section
--- OUTSIDE RECORDS SUMMARY | 2019-04-11 22:05 | XMS REPORT | Summary of Care ---
Author Organization Unknown Address Unknown Phone Unavailable Encounter HQ Nailar_suresh(BROCK) [id number] Date(s): 07/16/14 - 08/14/14 [facility] Discharge Disposition: Home Physician Attending: Louie Craig MD Reason for Visit RT KNEE PAIN Problem List No data available for this section Allergies, Adverse Reactions, Alerts Substance Reaction Severity Status penicillins Active Medications No data available for this section Medications Administered During Your Visit No data available for this section Immunizations No data available for this section
--- OUTSIDE RECORDS SUMMARY | 2019-04-11 22:05 | XMS REPORT | Summary of Care ---
Author Organization Unknown Address Unknown Phone Unavailable Encounter HQ Ryanntr_suresh(BROCK) [id number] Date(s): 06/11/14 - 07/10/14 [facility] Discharge Disposition: Home Physician Attending: Louie Craig [...]
--- OUTSIDE RECORDS SUMMARY | 2019-04-11 22:05 | XMS REPORT | Summary of Care ---
Author Author [facility] [place] Organization [facility] [place] Address Unknown Phone Unavailable Encounter HQ Encntr_alias(FIN) [id number] Date(s): 05/16/17 - 05/16/17 [facility] [place] [address] [place] [phone] Discharge Disposition: Home or Self Care Attending Physician: Altaf Damon MD Vital Signs No data available for this section Problem List No data available for this section Allergies, Adverse Reactions, Alerts Substance Reaction Severity Status penicillins Active Medications No data available for this section Results No data available for this section Immunizations No data available for this section Procedures No data available for this section Social History Social History Type Response Smoking Status Never smoker; Exposure to Tobacco Smoke None; Cigarette Smoking Last 365 Days No; Reg Smoking Cessation Counseling No Assessment and Plan No data available for this section
--- OUTSIDE RECORDS SUMMARY | 2019-04-11 22:05 | XMS REPORT | Summary of Care ---
Author Author [facility] Organization [facility] Address Unknown Phone Unavailable Encounter HQ Victorino_suresh(FIN) [id number] Date(s): 08/22/17 - 08/22/17 [facility] Neuro[facility] [address] [facility], [address] [place] [address] [phone] Discharge Disposition: Home or Self Care Attending Physician: To Rose MD Referring Physician: Mike Bhakta MD Vital Signs Most recent to 1 oldest [Reference Range]: Height 162.56 cm (08/22/17 9:25 AM) Blood Pressure 129/83 mmHg [90-140/60-90 mmHg] (08/22/17 9:25 AM) Peripheral Pulse 59 bpm Rate [60-100 bpm] *LOW* (08/22/17 9:25 AM) Weight 72.727 kg (08/22/17 9:25 AM) Body Mass Index 27.52 m2 (08/22/17 9:25 AM) Problem List Condition Effective Dates Status Health Status Informant Pulmonary Resolved embolism(Confirmed) Allergies, Adverse Reactions, Alerts Substance Reaction Severity Status penicillins Active Medications No Known Medications Results No data available for this section Immunizations No data available for this section Procedures Procedure Date Related Diagnosis Body Site Colonoscopy Pulmonary fat embolism Social History Social History Type Response Smoking Status Never smoker; Exposure to Tobacco Smoke None; Cigarette Smoking Last 365 Days No; Reg Smoking Cessation Counseling No Assessment and Plan No data available for this section
--- OUTSIDE RECORDS SUMMARY | 2019-04-11 22:05 | XMS REPORT | Summary of Care ---
Author Author [facility] Organization [facility] Address Unknown Phone Unavailable Encounter HQ Encntr_alias(FIN) [id number] Date(s): 09/12/17 - 10/11/17 [facility] Discharge Disposition: Home or Self Care Attending Physician: Nicolette Rios MD Vital Signs No data available for this section Problem List Condition Effective Dates Status Health [...]
--- OUTSIDE RECORDS SUMMARY | 2019-04-11 22:05 | XMS REPORT | Summary of Care ---
Author Author [facility] Organization [facility] Address Unknown Phone Unavailable Encounter MIRIAM Mcdonough(BROCK) [id number] Date(s): 12/23/15 - 12/23/15 [facility] [address] [employer] [facility] provided by [employer] [facility] [place] [address]- Discharge Diagnosis: Palpitations Discharge Disposition: Home Attending Physician: Mohinder Patrick MD Vital Signs 1 2 3 Most recent to oldest [Reference Range]: 98.2 DegF (12/23/15 3:44 PM) 98.1 DegF (12/23/15 2:45 PM) 98.3 DegF (12/23/15 10:45 AM) Temperature Oral [96.4-99.1 DegF] 133/74 mmHg (12/23/15 3:44 PM) 128/72 mmHg (12/23/15 2:45 PM) 140/90 mmHg (12/23/15 12:45 PM) Blood Pressure [90-140/60-90 mmHg] 16 BRMIN (12/23/15 3:44 PM) 16 BRMIN (12/23/15 2:45 PM) 16 BRMIN (12/23/15 12:45 PM) Respiratory Rate [14-20 BRMIN] 83 bpm (12/23/15 3:44 PM) 89 bpm (12/23/15 2:45 PM) 96 bpm (12/23/15 12:45 PM) Peripheral Pulse Rate [60-100 bpm] Problem List No data available for this section Allergies, Adverse Reactions, Alerts Substance Reaction Severity Status penicillins Active Medications morphine Sulfate 2 mg, Route: IVP, Drug form: INJ, ONCE, Dosing Weight 74.091, kg, Priority: STAT , Start date: 12/23/15 12:33:00, Stop date: 12/23/15 12:33:00 Start Date: 12/23/15 Stop Date: 12/23/15 Status: Completed NS (Bolus) IV 1,000 mL, 1,000 ml/hr, Infuse Over: 1 hr, Route: IV, ONCE, Priority: STAT, Dosin g Weight 74.091 kg, Start date: 12/23/15 12:33:00, Duration: 1 doses or times, S top date: 12/23/15 12:33:00 Start Date: 12/23/15 Stop Date: 12/23/15 Status: Completed Omnipaque 350mg/ml 87 mL, Route: IVP, Drug Form: SOLN, Dosing Weight 74.091, kg, ONCALL, STAT, Star t date: 12/23/15 14:07:00, Duration: 1 doses or times, Dose=2.2ml/kg, Max dose= 100ml -- "To be infused by Radiology Staff ONLY" Start Date: 12/23/15 Stop Date: 12/23/15 Status: Completed Zofran 4 mg, Route: IVP, Drug form: INJ, ONCE, Dosing Weight 74.091, kg, Priority: STAT , Start date: 12/23/15 12:33:00, Stop date: 12/23/15 12:33:00 Start Date: 12/23/15 Stop Date: 12/23/15 Status: Completed Results ELECTROLYTES Most recent to 1 oldest [Reference Range]: Sodium Lvl [135-145 139 mEq/L mEq/L] (12/23/15 12:00 PM) Potassium Lvl 4.0 mEq/L [3.5-5.1 mEq/L] (12/23/15 12:00 PM) Chloride Lvl [95-109 103 mEq/L mEq/L] (12/23/15 12:00 PM) CO2 [24-32 mEq/L] 28 mEq/L (12/23/15 12:00 PM) AGAP [10.0-20.0 12.0 mEq/L mEq/L] (12/23/15 12:00 PM) CHEM PANEL Most recent to 1 oldest [Reference Range]: Creatinine Lvl 1.25 mg/dL [0.50-1.40 mg/dL] (12/23/15 12:00 PM) eGFR 63 mL/min/1.73m2 1 *NA* (12/23/15 12:00 PM) BUN [7-22 mg/dL] 14 mg/dL (12/23/15 12:00 PM) B/C Ratio [6-25] 11 (12/23/15 12:00 PM) Glucose Lvl [70-99 103 mg/dL mg/dL] *HI* (12/23/15 12:00 PM) Total Protein 8.3 g/dL [6.4-8.4 g/dL] (12/23/15 12:00 PM) Albumin Lvl [3.5-5.0 3.9 g/dL g/dL] (12/23/15 12:00 PM) Globulin [2.0-4.0 4.4 g/dL g/dL] *HI* (12/23/15 12:00 PM) A/G Ratio [0.7-1.6] 0.9 (12/23/15 12:00 PM) Calcium Lvl 9.2 mg/dL [8.5-10.5 mg/dL] (12/23/15 12:00 PM) ALT [0-65 unit/L] 45 unit/L (12/23/15 12:00 PM) AST [0-37 unit/L] 22 unit/L (12/23/15 12:00 PM) Alk Phos [39-136 91 unit/L unit/L] (12/23/15 12:00 PM) Bili Total [0.2-1.3 2.4 mg/dL mg/dL] *HI* (12/23/15 12:00 PM) Lactic Acid Lvl 1.6 mMol/L [0.5-2.2 mMol/L] (12/23/15 12:00 PM) 1Result Comment: The eGFR is calculated using [...] be mul tiplied by the estimated BMI. CARDIAC ENZYMES Most recent to 1 oldest [Reference Range]: Troponin-I <0.02 ng/mL [0.00-0.40 ng/mL] (12/23/15 12:00 PM) HEMATOLOGY Most recent to 1 oldest [Reference Range]: WBC [3.7-10.4 K/CMM] 9.3 K/CMM (12/23/15 12:00 PM) RBC [4.70-6.10 5.18 M/CMM M/CMM] (12/23/15 12:00 PM) Hgb [14.0-18.0 g/dL] 16.2 g/dL (12/23/15 12:00 PM) Hct [42.0-54.0 %] 49.4 % (12/23/15 12:00 PM) MCV [80.0-94.0 fL] 95.4 fL *HI* (12/23/15 12:00 PM) MCH [27.0-31.0 pg] 31.3 pg *HI* (12/23/15 12:00 PM) MCHC [32.0-36.0 32.8 g/dL g/dL] (12/23/15 12:00 PM) RDW [11.5-14.5 %] 13.7 % (12/23/15 12:00 PM) Platelet [133-450 209 K/CMM K/CMM] (12/23/15 12:00 PM) MPV [7.4-10.4 fL] 8.9 fL (12/23/15 12:00 PM) Segs [45.0-75.0 %] 68.7 % (12/23/15 12:00 PM) Lymphocytes 17.8 % [20.0-40.0 %] *LOW* (12/23/15 12:00 PM) Monocytes [2.0-12.0 12.5 % %] *HI* (12/23/15 12:00 PM) Eosinophils [0.0-4.0 0.5 % %] (12/23/15 12:00 PM) Basophils [0.0-1.0 0.5 % %] (12/23/15 12:00 PM) Segs-Bands # 6.4 K/CMM [1.5-8.1 K/CMM] (12/23/15 12:00 PM) Lymphocytes # 1.6 K/CMM [1.0-5.5 K/CMM] (12/23/15 12:00 PM) Monocytes # [0.0-0.8 1.2 K/CMM K/CMM] *HI* (12/23/15 12:00 PM) Immunizations No data available for this section Procedures No data available for this section Social History Social History Type Response Smoking Status Never smoker; Exposure to Tobacco Smoke None; Cigarette Smoking Last 365 Days No; Reg Smoking Cessation Counseling No Assessment and Plan No data available for this section
--- OUTSIDE RECORDS SUMMARY | 2019-04-11 22:05 | XMS REPORT | Summary of Care ---
Author Organization Unknown Address Unknown Phone Unavailable Encounter HQ Encntr_suresh(BROCK) [id number] Date(s): 05/05/14 - 06/03/[address] [facility] Discharge Disposition: Home Physician Attending: Louie Craig MD Reason for Visit RT KNEE Problem List No data available for this section Allergies, Adverse Reactions, Alerts Substance Reaction Severity Status penicillins Active Medications No data available for this section Medications Administered During Your Visit No data available for this section Immunizations No data available for this section
[2019-04-11] MEDS ORDERED: KETOROLAC TROMETHAMINE 30 MG/ML VIAL IV STA (22:34)
[2019-04-11] MEDS ORDERED: LYRICA75 MG PO (22:41)
[2019-04-11] MEDS ORDERED: NAPRELAN500 MG PO (22:41)
[2019-04-11] MEDS ORDERED: ORPHENADRINE CITRATE 30 MG/ML VIAL IM ONE (22:45)
[2019-04-11] MEDS ORDERED: TRAMADOL HCL 50 MG TAB PO ONE (22:45)
[2019-04-11 23:46] LABS: BASOPHILS # (AUTO) 0.1 (0.0-0.1); BASOPHILS % 1.3 % (0.0-1.0); EOSINOPHILS % 0.6 % (0.0-6.0); HEMOGLOBIN 14.8 g/dL (14.0-18.0); LYMPHOCYTES # (AUTO) 0.8 (1.0-3.2); LYMPHOCYTES % 11.9 % (18.0-39.1); MEAN CORPUSCULAR HGB CONC 32.2 g/dL (31-35); MEAN CORPUSCULAR VOLUME 96.4 fL (81-99); MONOCYTES # (AUTO) 0.3 (0.2-0.8); MONOCYTES % 4.9 % (4.4-11.3); NEUTROPHILS # (AUTO) 5.5 (2.1-6.9); PLATELET COUNT 269 x10e3/uL (140-360); RED BLOOD COUNT 4.77 x10e6/uL (4.3-5.7); RED CELL DISTRIBUTION WIDTH 13.7 % (11.7-14.4)
[2019-04-12 00:37] LABS: ALANINE AMINOTRANSFERASE 38 IU/L (0-55); ALBUMIN/GLOBULIN RATIO 1.1 (0.8-2.0); ALKALINE PHOSPHATASE 64 IU/L (40-150); ANION GAP 14.6 mmol/L (8-16); BLOOD UREA NITROGEN 15 mg/dL (7-26); BUN/CREATININE RATIO 10 (6-25); CALCIUM 9.9 mg/dL (8.4-10.2); CARBON DIOXIDE 27 mmol/L (22-29); CHLORIDE 105 mmol/L (98-107); CREATINE KINASE 209 IU/L (30-200); CREATININE, SERUM 1.44 mg/dL (0.72-1.25); EST GLOMERULAR FILTRATION RATE 50 ML/MIN (60-); GLUCOSE 113 mg/dL (74-118); POTASSIUM 4.6 mmol/L (3.5-5.1); SODIUM 142 mmol/L (136-145)
== END 2019-04-12 01:20 | disposition home or self-care (01) ==
LOC: ER 22:01
DX: M79.622 Pain in left upper arm (principal); M54.2 Cervicalgia; M54.12 Radiculopathy, cervical region
CPT/HCPCS: 36415; 80053; 82550; 82553; 84484; 85025; 93005; 99283; J1885; J2360

== ENCOUNTER → 2022-11-28 | Outpatient (CLI) | payer BC ==
[~2022-11-28] MED LIST changes: +ALLOPURINOL300 MG PO; +IOPAMIDOL 370 MG/ML 100 ML INFUS..BTL INJ ONE; +LYRICA75 MG PO; +NAPRELAN500 MG PO; +NITROGLYCERIN 0.4 MG SUBL ONE; +SODIUM CHLORIDE 0.9% 100 ML ONE
[2022-11-28 08:13] LABS: CREATININE, SERUM 1.22 mg/dL (0.72-1.25)
== END ==
LOC: RAD 07:18
PROVIDERS: ATTEND Internal Medicine
DX: I11.9 Hypertensive heart disease without heart failure (principal); E78.5 Hyperlipidemia, unspecified
CPT/HCPCS: 36415; 75574; 82565; 84520; J7050; Q9967

== ENCOUNTER → 2024-08-12 | Day surgery (SDC) | payer BC ==
[2024-08-08 11:15] LABS: BASOPHILS # (AUTO) 0.1 (0.0-0.1); BASOPHILS % 1.1 % (0.0-1.0); EOSINOPHILS # (AUTO) 0.3 (0.0-0.4); EOSINOPHILS % 3.4 % (0.0-6.0); HEMATOCRIT 46.9 % (38.2-49.6); LYMPHOCYTES # (AUTO) 2.8 (1.0-3.2); MEAN CORPUSCULAR HEMOGLOBIN 33.3 pg (28-32); MEAN CORPUSCULAR VOLUME 104.2 fL (81-99); MONOCYTES # (AUTO) 0.8 (0.2-0.8); NEUTROPHILS # (AUTO) 4.4 (2.1-6.9); NEUTROPHILS % 52.3 % (38.7-80.0); PLATELET COUNT 206 x10e3/uL (140-360); RED CELL DISTRIBUTION WIDTH 13.3 % (11.7-14.4); WHITE BLOOD COUNT 8.33 x10e3/uL (4.8-10.8)
[~2024-08-12] MED LIST changes: +ASPIRIN81 MG PO; +BUPIVACAINE HCL 0.5% INJ 30 ML VIAL INJ ONE; +HYDROCODON-ACE1 EA11 PO; -IOPAMIDOL 370 MG/ML 100 ML INFUS..BTL INJ ONE; +MUPIROCIN 2% OINT 22 GM TUBE ONE; -NITROGLYCERIN 0.4 MG SUBL ONE; -SODIUM CHLORIDE 0.9% 100 ML ONE
[2024-08-12] MEDS: CLINDAMYCIN 600MG / 50ML 50 ML IV ONE (06:11)
[2024-08-12] MEDS: LACTATED RINGER'S 1,000 ML ONE (06:11)
[2024-08-12 07:48] VITALS: TEMP 97.9
[2024-08-12 08:35] VITALS: BP 128/72; PULSE 68; RESP 18; O2SAT 96
== END | disposition home or self-care (01) ==
LOC: OR 05:11
PROVIDERS: ATTEND Plastic Surgery
DX: M72.0 Palmar fascial fibromatosis [Dupuytren] (principal); I10 Essential (primary) hypertension; E78.5 Hyperlipidemia, unspecified; K21.9 Gastro-esophageal reflux disease without esophagitis; M10.9 Gout, unspecified; Z88.0 Allergy status to penicillin; Z01.810 Encounter for preprocedural cardiovascular examination; Z01.812 Encounter for preprocedural laboratory examination; Z01.818 Encounter for other preprocedural examination; Z79.82 Long term (current) use of aspirin; Z79.899 Other long term (current) drug therapy; Z86.711 Personal history of pulmonary embolism
CPT/HCPCS: 26123; 36415; 71046; 85025; 88304; 93005; J7121